=== PATIENT | female | born 1975 | race Two or more races ===

== ENCOUNTER 2021-06-17 12:47 | Outpatient (CLI) | payer OTHER | END 2021-06-17 13:01 | disposition home or self-care (01) | LOC: MAMO-SONO 12:47 | PROVIDERS: ATTEND Obstetrics & Gynecology | DX: N60.11 Diffuse cystic mastopathy of right breast (principal); N60.12 Diffuse cystic mastopathy of left breast; Z12.31 Encounter for screening mammogram for malignant neoplasm of breast; R10.2 Pelvic and perineal pain; N92.1 Excessive and frequent menstruation with irregular cycle; N64.4 Mastodynia; N64.59 Other signs and symptoms in breast ==